=== PATIENT | male | born 1965 | race Caucasian/White ===

== ENCOUNTER → 2017-12-30 | Outpatient (CLI) | payer OTHER ==
[2017-12-30 07:42] LABS: ABSOLUTE EOSINOPHILS 0.1 thou/uL (0.0-0.7); ABSOLUTE MONOCYTES 0.5 thou/uL (0.0-1.2); ABSOLUTE NEUTROPHILS 3.4 thou/uL (1.6-8.1); BASOPHILS 0.7 %; EOSINOPHILS 2.2 %; HEMATOCRIT 43.6 % (42.0-52.0); HEMOGLOBIN 15.1 gm/dL (14.0-18.0); LYMPHOCYTES 32.8 %; MCH 31.7 pg (26.0-34.0); MCHC 34.7 g/dL (28.0-37.0); MCV 91.4 fL (80.0-100.0); MONOCYTES 7.9 %; MPV 7.9 fl. (7.2-11.1); NUCLEATED RBCS 0 /100WBC; PLATELET COUNT* 186 thou/uL (150-400); POLYS 56.4 %; RBC 4.77 mil/uL (4.50-6.00); RDW-CV 13.1 % (10.5-14.5); WBC 6.1 thou/uL (4.0-11.0)
[2017-12-30 07:54] LABS: ALBUMIN 4.5 g/dL (3.4-5.0); DIRECT BILIRUBIN 0.2 mg/dL (<0.1-0.3); TOTAL BILIRUBIN 0.9 mg/dL (<0.1-1.0); TOTAL PROTEIN 7.4 g/dL (6.4-8.2)
[2017-12-30 07:55] LABS: ANION GAP 9 mmol/L (7-16); BUN 10 mg/dL (7-18); CALCIUM 9.6 mg/dL (8.5-10.1); CHLORIDE 105 mmol/L (98-107); CHOLESTEROL 157 mg/dL (<200); CO2 30 mmol/L (21-32); CREATININE 1.2 mg/dL (0.6-1.3); GLUCOSE 91 mg/dL (70-99); HDL CHOLESTEROL 50 mg/dL (>40); LDL CHOLESTEROL 93 mg/dL (<100); POTASSIUM 3.3 mmol/L (3.5-5.1); SERUM ASSESSMENT Clear; SODIUM 144 mmol/L (136-145); TC:HDL 3.1 Ratio (Not establshd); TRIGLYCERIDE 74 mg/dL (<150); VLDL 15 mg/dL (<40)
--- NOTE | 2017-12-30 16:37 | 2DMMODE ---
[place] [address] 2 D/M-MODE ECHOCARDIOGRAM Name: CASIE ALEXIS Room: [facility]#: [id number] Admission: 12/30/17 Attend Phys: Dannie Moore, Discharge: Date of : 63 Date of Service: 12/30/17 1637 Report #: [id number] THIS REPORT FOR: //name// APPROVED REPORT Study performed: 12/30/2017 12:08:51 EXAM: Comprehensive 2D, Doppler, and color-flow Echocardiogram Patient Location: Out-Patient Status: routine BSA: 2.40 HR: 64 bpm BP: 160/92 mmHg Rhythm: NSR Other Information Study Quality: Good Indications Hypertension/HDD 2D Dimensions LVEF(%): 60.35 (>50%) IVSd: 15.37 (7-11mm) LVOT Diam: 23.27 (18-24mm) LVDd: 52.10 mm PWd: 12.76 (7-11mm) Ascending Ao: 35.82 (22-36mm) LVDs: 35.20 (25-40mm) Aortic Root: 33.57 mm Del Real's LVEF: 60.35 % Volumes Left Atrial Volume (Systole) LA ESV Index: 51.40 mL/m2 Aortic Valve AoV Peak Jose.: 1.59 m/s AO Peak Gr.: 10.10 mmHg LVOT Max P.74 mmHg AO Mean Gr.: 5.46 mmHg LVOT Mean P.38 mmHg LVOT Max V: 1.39 m/s AO V2 VTI: 36.26 cm LVOT Mean V: 0.82 m/s SURJIT (VTI): 3.62 cm2 LVOT V1 VTI: 30.90 cm Mitral Valve E/A Ratio: 0.79 [place] [address] 2 D/M-MODE ECHOCARDIOGRAM Name: CASIE ALEXIS Room: [facility]#: [id number] Admission: 12/30/17 Attend Phys: Dannie Moore, Discharge: Date of : 63 Date of Service: 12/30/17 1637 Report #: [id number] MV Decel. Time: 314.03 ms MV E Max Jose.: 0.70 m/s MV PHT: 91.07 ms MVA (PHT): 2.42 cm2 TDI E/Lateral E': 7.78 E/Medial E': 10.00 Medial E' Jose.: 0.07 m/s Lateral E' Jose.: 0.09 m/s Pulmonary Valve PV Peak Jose.: 0.97 m/s PV Peak Gr.: 3.80 mmHg Tricuspid Valve TR Peak Gr.: 24.38 mmHg RVSP: 29.00 mmHg Left Ventricle The left ventricle is normal size. There is normal LV segmental wall motion. Mild concentric left ventricular hypertrophy. Left ventricular systolic function is normal. The left ventricular ejection fraction is within the normal range. LVEF is 60-65%. The left ventricular diastolic function is normal. Right Ventricle The right ventricle is normal size. The right ventricular systolic function is normal. Atria Left atrium is moderately dilated. The right atrium size is normal. Aortic Valve The aortic valve is normal in structure. No aortic regurgitation is present. There is no aortic valvular stenosis. Mitral Valve The mitral valve is normal in structure. Trace mitral regurgitation. No evidence of mitral valve stenosis. Tricuspid Valve The tricuspid valve is normal in structure. Trace tricuspid regurgitation. The RVSP is ___29____ mmHg. Pulmonic Valve The pulmonary valve is normal in structure. There is no pulmonic [place] [address] 2 D/M-MODE ECHOCARDIOGRAM Name: CASIE ALEXIS Todd Room: [facility]#: [id number] Admission: 12/30/17 Attend Phys: Dannie Moore, Discharge: Date of : 63 Date of Service: 12/30/17 1637 Report #: [id number] Great Vessels The aortic root is normal in size. IVC is normal in size and collapses with >50% inspiration Pericardium There is no pericardial effusion. <Conclusion> Mild concentric left ventricular hypertrophy. LVEF is 60-65%. Left atrium is moderately dilated. <ELECTRONICALLY SIGNED> By: Parag Howard MD, FACC 12/30/17 1637 36 36 Parag Howard MD, FACC /INF
[2017-12-31 07:06] LABS: GLYCOHEMOGLOBIN (HGB A1C) 4.7 % (4.8-5.6)
== END ==
LOC: M.CRD 07:23
PROVIDERS: Internal Medicine Cardiovascular Disease
DX: I11.0 Hypertensive heart disease with heart failure (principal); Z13.29 Encounter for screening for other suspected endocrine disorder; Z13.220 Encounter for screening for lipoid disorders; R73.09 Other abnormal glucose; R53.83 Other fatigue

== ENCOUNTER → 2019-08-23 | Outpatient (CLI) | payer OTHER | LOC: M.LAB 07:08 | DX: N20.0 Calculus of kidney (principal); Z90.49 Acquired absence of other specified parts of digestive tract ==

== ENCOUNTER → 2020-11-12 | Day surgery (SDC) | payer OTHER ==
[~2020-11-12] MED LIST: ASPIRIN EC325 M1 PO; BENICAR40 MG PO; BRINTELLIX10 MG PO; BYSTOLIC10 MG PO; COZAAR100 MG PO; DEXILANT60 MG PO; FLOMAX0.4 MG PO; MYRBETRIQ50 MG PO; OXYCODONE HCL 55 MG PO; PROCARDIA XL60 MG PO
--- NOTE | ~2020-11-12 | OP ---
[address] [address] OPERATIVE REPORT Name: CASIE ALEXIS JOSE A Room: [facility].#: [id number] Admission: 11/12/20 Attend Phys: Andrei Pozo DO Discharge: Date of : 63 Report #: [id number] THIS REPORT FOR: cc: Justine Alexis Tami FNP ~ Andrei Pozo DO DATE OF SERVICE: 11/12/2020 PREOPERATIVE DIAGNOSIS: Left inguinal hernia. POSTOPERATIVE DIAGNOSIS: Bilateral indirect inguinal hernias. PROCEDURE: Da Catrina robotic-assisted bilateral inguinal hernia repair with anatomic ProGrip mesh on both sides. SURGEON: Andrei Pozo DO [employer] SPECIALIST: Jorge Riley DO, PGY-1, resident. ANESTHESIA: General endotracheal and TAP blocks. ESTIMATED BLOOD LOSS: Less than 20 mL. COMPLICATIONS: None. DESCRIPTION OF PROCEDURE: After obtaining proper consents and discussing risks and complications with the patient, he was taken to the operating room, laid in the supine position, administered general endotracheal anesthetic. He was then prepped and draped in the usual sterile fashion. A timeout was performed. We confirmed the appropriate patient and the procedure. Preoperative antibiotics were given. SCDs were in place. TAP blocks had been performed by Anesthesia prior to prepping and draping. After the patient was prepped and draped in the usual sterile fashion, a supraumbilical skin incision was made with a #11 scalpel blade. This was carried down through the skin into the subcutaneous tissue using electrocautery for hemostasis. Once the fascia was encountered, it was incised along the midline, grasped and elevated with Yann clamps. The peritoneum was then bluntly opened using a hemostat, could easily visualize into the peritoneal cavity. At this point, I placed two 0 Vicryl sutures in a [id number] fashion to secure the da Catrina camera port, which was then inserted and insufflation was begun. Once insufflation was complete, full visual inspection of the anterior abdominal organs was performed. This immediately revealed a moderate-sized hernia in the right inguinal region, this was an indirect inguinal hernia. We also identified a smaller left indirect inguinal hernia. There were no other gross abnormalities other than one small adhesion of the sigmoid colon to the peritoneum on [place] [address] OPERATIVE REPORT Name: ALEXISCASIE JOSE A Room: [facility].#: [id number] Admission: 11/12/20 Attend Phys: Andrei Pozo DO Discharge: Date of : 63 Report #: [id number] placed the patient in Trendelenburg, we placed 2 more 8.5 mm da Catrina ports. Once those ports were inserted, we then inserted the anatomic ProGrip mesh on both the right and left sides along with a 2-0 absorbable V-Loc suture, which was placed in the mesh and inserted into the peritoneal cavity. We then docked the da Catrina robot. Once the robot was docked, we inserted monopolar scissors in the right upper quadrant and bipolar fenestrated grasper in the left upper quadrant. I then broke scrub and went on console. Once on console, I identified the ASIS on both sides. I then opened the peritoneum beginning on the right side from the median umbilical ligament extending out to the ASIS. The preperitoneal space was then developed dissecting all the way down medially first to the pubic ramus and below that. I then identified the direct space, the femoral space and then I dissected the indirect inguinal hernia sac off of the cord and cord structures. Once the sac was completely reduced back into the peritoneal cavity, I continued the dissection laterally all the way out to the ASIS until the pocket was big enough to place the 15 x 10 cm anatomic ProGrip mesh. I then repeated the dissection on the left side. Again, first taking down the adhesion to the peritoneum on the left side, I then opened the peritoneum from the median umbilical ligament laterally to the ASIS. I began by dissecting medially first and going all the way below the pubic ramus. We identified the direct space, the femoral space. There were no hernias identified here. I continued to dissect the hernia sac off of the cord and cord structures until it was completely reduced. I then continued to open the peritoneum all the way out to the ASIS where the entire preperitoneal space was developed to allow for placement of another 15 x 10 cm anatomic ProGrip mesh. Once the mesh was inserted, the mesh was opened in its entirety. It was completely opened. The peritoneal flap was then closed using a running 2-0 absorbable V-Loc suture. Once this was complete on both sides, the needles were removed. We also removed a cord lipoma from both sides during the dissection. These were placed into an Endopouch and removed through the right upper quadrant incision. I rescrubbed to the patient's bedside and then the insufflation was stopped. The da Catrina robot was undocked. The ports were removed. The cord lipomas were removed through the incision in the right upper quadrant. We then closed the umbilical fascia using the 2 previously placed 0 Vicryl sutures plus an additional 0 Vicryl suture. Skin incisions were all closed using 4-0 Monocryl and Dermabond. The patient was awakened in the operating room and transported to recovery room in stable condition. Sponge, needle and instrument counts were all correct at the end of the procedure. By: 1758 1901Adavy Pozo DO /nt
[2020-11-12 07:20] LABS: HEMATOCRIT 42.8 % (42.0-52.0); HEMOGLOBIN 14.6 gm/dL (14.0-18.0); MCH 31.8 pg (26.0-34.0); MCHC 34.2 g/dL (28.0-37.0); MPV 8.3 fl. (7.2-11.1); RBC 4.6 mil/uL (4.50-6.00); RDW-CV 13.4 % (10.5-14.5); WBC 5.1 thou/uL (4.0-11.0)
[2020-11-12 07:24] LABS: CALCIUM 9.8 mg/dL (8.5-10.1); POTASSIUM 3.5 mmol/L (3.5-5.1)
--- NOTE | 2020-11-12 11:06 | EKG ---
[place] [address] ELECTROCARDIOGRAM REPORT Name: ALEXISCASIE THOMPSON Room: [facility]#: [id number] Admission: 11/12/20 Attend Phys: Andrei Pozo DO Discharge: Date of : 63 Date of Service: 11/12/20 0747 Report #: [id number] THIS REPORT FOR: //name// [facility] Test Date: 2020-11-12 Test Time: 07:47:41 Pat Name: CASIE ALEXIS Department: Room: Gender: Metal Smelter: : 1965 Requested By: Andrei Pozo Order Number: [id number] Reading MD: Dannie Moore Measurements Intervals [place] Rate: 52 P: 3 [place]: 183 QRS: -11 QRSD: 105 T: 21 QT: 442 QTc: 411 Interpretive Statements Sinus bradycardia multiform ventricular premature complexes Baseline wander in lead(s) V3,V5,V6 No previous ECG available for comparison Electronically Signed On 11-12-2020 11:05:55 [employer] by Dannie Moore [email or web address] <ELECTRONICALLY SIGNED> By: Dannie Moore MD, [facility] 11/12/20 1105 0747 0747 Dannie Moore MD, [facility] /EPI
--- NOTE | 2020-11-15 10:08 | PATH ---
[address] [address] PATHOLOGY RPT PROCEDURE Name: CASIE ELIZALDE Room: [facility]..#: [id number] Admission: 11/12/20 Date of : 63 Discharge: Report #: [id number] Path Case #: [id number] [facility] Accession Number: [id number] . 01 Material submitted: . inguinal area - CORD LIPOMAS . 01 Clinical history: . INGUINAL HERNIA . 02 Diagnosis: Cord lipomas: - Two segments of encapsulated benign fat typical of "cord lipomas". (EILEEN:arcelia; 11/14/2020) [facility] 11/14/2020 1714 Local . 02 Electronically signed: . Adelfo Guaman MD, Pathologist NPI- [id number] . 01 Gross description: . Received in formalin labeled "Elizalde, Casie, cord lypoma's" are two partially encapsulated portions of yellow-varela lobular fibroadipose tissue measuring 6.6 x 4.0 x 1.5 cm (inked blue) and 12.2 x 3.8 x 2.5 cm (inked black). Upon sectioning, the cut surfaces are yellow-varela and homogeneous without hemorrhage or necrosis. Carpenter'S Helper tissue is submitted as follows: A1-A3 smaller portion A4-A9 larger portion [place] [place]13[place] [facility] 11/14/2020 1713 Local . 02 Pathologist provided ICD-10: D17.6 . 02 CPT . 781051 Specimen Comment: A courtesy copy of this report has been sent to [phone] Specimen Comment: Report sent to / Performed at: 01 [facility] [address] [id number] MD Daniel Madison MD Phone: [phone] Performed at: 02 [facility] [address], [place], [place] [id number] MD Adelfo Guaman MD Phone: [phone]
== END | disposition home or self-care (01) ==
LOC: M.SUR 06:34
PROVIDERS: ATTEND Surgery
DX: K40.20 Bilateral inguinal hernia, without obstruction or gangrene, not specified as recurrent (principal); D17.6 Benign lipomatous neoplasm of spermatic cord; I10 Essential (primary) hypertension; F32.9 Major depressive disorder, single episode, unspecified; F41.9 Anxiety disorder, unspecified; K21.9 Gastro-esophageal reflux disease without esophagitis; Z98.890 Other specified postprocedural states; Z79.899 Other long term (current) drug therapy; Z87.442 Personal history of urinary calculi; Z88.8 Allergy status to other drugs, medicaments and biological substances